=== PATIENT | male | born 1950 | race Caucasian/White ===

== ENCOUNTER 2025-09-05 08:32 | Inpatient (IN) | payer MEDICARE ==
[~2025-09-05] VITALS: Ht 182.9 cm; Wt 98.0 kg
[2025-09-05 08:34] VITALS: O2SAT 100
[2025-09-05] MEDS ORDERED: MORPHINE SULFATE 4 MG/ML INJ (FOR IV/IM USE) IV ONE (09:15)
[2025-09-05 10:08] LABS: HEMATOCRIT. 27.7 % (42.0-52.0); HEMOGLOBIN. 8.5 g/dL (14.0-18.0); MEAN PLATELET VOLUME 9.2 fl (7.4-10.4); PLATELET 240 x1000/uL (130-400); RED BLOOD CELL COUNT 3.56 mill/uL (4.7-6.1); RED CELL DISTRIBUTION WIDTH 17.8 % (11.6-14.6)
[2025-09-05 10:23] LABS: CREATININE 1.1 mg/dL (0.6-1.3); UREA NITROGEN BLOOD 20 mg/dL (9-23)
[2025-09-05 10:25] LABS: ASPARTATE AMINOTRANSFERASE 27 IU/L (<34); BILIRUBIN TOTAL 0.7 mg/dL (0.1-1.0); PROTEIN TOTAL 7.8 g/dL (6.0-8.3)
[2025-09-05 10:59] LABS: BAND% 1.0 % (1.0-6.0); EOSINOPHILS % MANUAL 1.0 % (0.0-5.0); LYMPHOCYTES % MANUAL 5.0 % (20.0-50.0); MONOCYTES % MANUAL 2.0 % (2.0-8.0); NEUTROPHILS % MANUAL 91.0 % (45.0-75.0)
[2025-09-05 11:00] LABS: PLATELET ESTIMATE NORMAL
[2025-09-05] MEDS: MORPHINE SULFATE 4 MG/ML INJ (FOR IV/IM USE) IV NR (15:14)
[2025-09-05] MEDS: CLONIDINE 0.1MG TABLET PO PRN (17:37)
[2025-09-05] MEDS ORDERED: CLONIDINE 0.1MG TABLET PO PRN (19:00)
[2025-09-05] MEDS ORDERED: IPRATROPIUM/ALBUTEROL 0.5-3(2.5)MG/3ML NEB HHN PRN (19:00)
[2025-09-05] MEDS ORDERED: ACETAMINOPHEN 325MG TABLET PO PRN (19:00)
[2025-09-05] MEDS ORDERED: ONDANSETRON HCL 4MG/2ML INJ IV PRN (19:00)
[2025-09-05] MEDS: HYDROCODONE/ACETAMINOPHEN 5/325MG TABLET PO PRN (19:22)
[2025-09-05 20:00] VITALS: BP 155/66; PULSE 80; RESP 16; TEMP 36.7; O2SAT 97
[2025-09-06] VITALS (9 sets, daily range): BP systolic 148–187; BP diastolic 58–80; PULSE 63–93; RESP 15–20; TEMP 36.6–37.3; O2SAT 95–98
[2025-09-06 11:18] LABS: BASOPHILS % 0.6 % (0.0-2.0); EOSINOPHILS % 1.4 % (0.0-5.0); HEMATOCRIT. 25.3 % (42.0-52.0); HEMOGLOBIN. 8.1 g/dL (14.0-18.0); LYMPHOCYTES % 10.0 % (20.0-50.0); MEAN PLATELET VOLUME 9.1 fl (7.4-10.4); MONOCYTES % 8.6 % (2.0-8.0); NEUTROPHILS % 79.4 % (40.0-76.0); PLATELET 240 x1000/uL (130-400); RED BLOOD CELL COUNT 3.37 mill/uL (4.7-6.1); RED CELL DISTRIBUTION WIDTH 17.1 % (11.6-14.6)
[2025-09-06 11:40] LABS: CREATININE 1.0 mg/dL (0.6-1.3)
[2025-09-06 11:41] LABS: UREA NITROGEN BLOOD 21 mg/dL (9-23)
[2025-09-06 11:42] LABS: ASPARTATE AMINOTRANSFERASE 23 IU/L (<34)
[2025-09-06 11:43] LABS: BILIRUBIN TOTAL 0.5 mg/dL (0.1-1.0); PROTEIN TOTAL 7.0 g/dL (6.0-8.3)
[2025-09-06] MEDS: AMLODIPINE 5MG TABLET PO SCH (14:39)
[2025-09-06] MEDS: ENOXAPARIN 40MG/0.4ML SYR SUBCUT SCH (14:39)
[2025-09-06] MEDS: SODIUM CHLORIDE 0.9% 1,000 ML IV SCH (15:47)
[2025-09-06 16:57] LABS: INR 1.0
[2025-09-07] VITALS (8 sets, daily range): BP systolic 123–177; BP diastolic 72–88; PULSE 80–87; RESP 16–19; TEMP 36.2–36.7; O2SAT 95–100
[2025-09-07] MEDS ORDERED: DEXAMETHASONE 4MG/ML 1ML VIAL ONE (11:27)
[2025-09-07] MEDS ORDERED: FENTANYL CITRATE/PF 50MCG/ML 2ML VIAL ONE ×2 (11:28→13:01)
[2025-09-07] MEDS ORDERED: PROPOFOL 200MG/20ML VIAL IV ONE (11:28)
[2025-09-07] MEDS ORDERED: FAMOTIDINE 20MG/2ML VIAL IV ONE (11:33)
[2025-09-07] MEDS ORDERED: ACETAMINOPHEN 1000MG/100ML 100 ML IV ONE (11:34)
[2025-09-07] MEDS ORDERED: LIDOCAINE HCL/EPINEPHRINE 1%-EPI 1:100,000 20ML VIAL ONE (11:43)
[2025-09-07] MEDS ORDERED: ONDANSETRON HCL 4MG/2ML INJ IV PRN ×2 (12:00→12:30)
[2025-09-07] MEDS ORDERED: HYDROCODONE/ACETAMINOPHEN 5/325MG TABLET PO PRN ×2 (12:00)
[2025-09-07] MEDS ORDERED: HYDROMORPHONE HCL/PF 2MG/ML INJ IV PRN (12:00)
[2025-09-07] MEDS ORDERED: CEFAZOLIN 1000MG PREMIX 50 ML IV SCH ×2 (12:00→14:00)
[2025-09-07] MEDS ORDERED: VANCOMYCIN HCL 1GM VIAL ONE (12:06)
[2025-09-07] MEDS ORDERED: GLYCOPYRROLATE 0.2 MG/ML 2ML VIAL ONE (12:10)
[2025-09-07] MEDS ORDERED: CEFAZOLIN SODIUM 1000MG/VIAL ONE (12:10)
[2025-09-07] MEDS ORDERED: LABETALOL 5MG/ML 4ML INJ IV PRN (12:30)
[2025-09-07] MEDS ORDERED: HYDRALAZINE 20MG/ML VIAL IV PRN (12:30)
[2025-09-07] MEDS ORDERED: ALBUTEROL (0.5%) 2.5MG/0.5ML NEB HHN ONE (12:30)
[2025-09-07] MEDS ORDERED: GABA-534 PO (12:45)
[2025-09-07] MEDS ORDERED: ESCI-7 PO (12:45)
[2025-09-07] MEDS ORDERED: OLAN7.5T50 MT (12:45)
[2025-09-07] MEDS ORDERED: CARI-517 PO (12:45)
[2025-09-07] MEDS ORDERED: HYDR-4350 PO (12:45)
[2025-09-07] MEDS ORDERED: FAMO40TA7 PO (12:45)
[2025-09-07] MEDS ORDERED: QUET25TA36 PO (12:45)
[2025-09-07] MEDS ORDERED: PREG75CA PO (12:45)
[2025-09-07] MEDS ORDERED: CALC30CA MT (12:45)
[2025-09-07] MEDS ORDERED: DOXE25CA3 PO (12:45)
[2025-09-07] MEDS ORDERED: ARIP10TA86 PO (12:45)
[2025-09-07] MEDS ORDERED: FENTANYL CITRATE/PF 50MCG/ML 2ML VIAL IV PRN (13:00)
[2025-09-07] MEDS: HYDROMORPHONE HCL/PF 1MG/ML INJ IV PRN (14:01)
[2025-09-07] MEDS: CEFAZOLIN 1000MG PREMIX 50 ML IV SCH (22:31)
[2025-09-08] VITALS (12 sets, daily range): BP systolic 140–186; BP diastolic 59–81; PULSE 66–90; RESP 16–24; TEMP 36.2–37.503; O2SAT 96–100
[2025-09-08 07:38] LABS: BASOPHILS % 0.7 % (0.0-2.0); EOSINOPHILS % 1.6 % (0.0-5.0); HEMATOCRIT. 22.0 % (42.0-52.0); LYMPHOCYTES % 11.2 % (20.0-50.0); MEAN PLATELET VOLUME 9.3 fl (7.4-10.4); MONOCYTES % 9.5 % (2.0-8.0); NEUTROPHILS % 77.0 % (40.0-76.0); PLATELET 228 x1000/uL (130-400); RED BLOOD CELL COUNT 2.84 mill/uL (4.7-6.1); RED CELL DISTRIBUTION WIDTH 17.3 % (11.6-14.6)
[2025-09-08 07:46] LABS: CREATININE 1.3 mg/dL (0.6-1.3)
[2025-09-08 07:47] LABS: UREA NITROGEN BLOOD 33 mg/dL (9-23)
[2025-09-08] MEDS ORDERED: TRAMADOL 50MG TABLET PO PRN (08:30)
[2025-09-08] MEDS ORDERED: MORPHINE SULFATE 4 MG/ML INJ (FOR IV/IM USE) IV PRN (08:30)
[2025-09-08] MEDS ORDERED: HYDROCODONE/ACETAMINOPHEN 5/325MG TABLET PO PRN (08:30)
[2025-09-08 08:37] LABS: HEMOGLOBIN. 7.0 g/dL (14.0-18.0)
[2025-09-08] MEDS: ENOXAPARIN 40MG/0.4ML SYR SUBCUT SCH (09:00)
[2025-09-08] MEDS: HYDROCODONE/ACETAMINOPHEN 10/325MG TABLET PO PRN (09:17)
[2025-09-08] MEDS ORDERED: NALOXONE HCL 0.4MG/ML VIAL IV PRN (17:30)
[2025-09-08] MEDS: AMLODIPINE 5MG TABLET PO SCH (17:37)
[2025-09-09] VITALS: BP 165/71; PULSE 97; RESP 19; TEMP 36.7; O2SAT 97
[2025-09-09 04:00] VITALS: BP 144/61; PULSE 62; RESP 18; TEMP 36.5; O2SAT 96
[2025-09-09 07:22] LABS: BASOPHILS % 1.0 % (0.0-2.0); EOSINOPHILS % 10.7 % (0.0-5.0); HEMATOCRIT. 23.9 % (42.0-52.0); HEMOGLOBIN. 7.4 g/dL (14.0-18.0); LYMPHOCYTES % 12.2 % (20.0-50.0); MEAN PLATELET VOLUME 9.5 fl (7.4-10.4); MONOCYTES % 11.5 % (2.0-8.0); NEUTROPHILS % 64.6 % (40.0-76.0); PLATELET 202 x1000/uL (130-400); RED BLOOD CELL COUNT 2.96 mill/uL (4.7-6.1); RED CELL DISTRIBUTION WIDTH 17.5 % (11.6-14.6)
[2025-09-09 08:00] VITALS: BP 146/70; PULSE 78; RESP 21; TEMP 36.4; O2SAT 95
[2025-09-09] MEDS: IRON SUCROSE COMPLEX 100 MG/5 ML ML IV SCH (08:44)
[2025-09-09] MEDS: FERROUS SULFATE 325MG TABLET PO SCH (11:58)
[2025-09-09 12:00] VITALS: BP 147/59; PULSE 48; RESP 20; TEMP 36.3; O2SAT 100
[2025-09-09 16:00] VITALS: BP 148/63; PULSE 81; RESP 20; TEMP 36.3; O2SAT 94
[2025-09-09] MEDS: DOCUSATE SODIUM 100MG CAPSULE PO PRN (17:58)
[2025-09-09 20:00] VITALS: BP 143/62; PULSE 96; RESP 19; TEMP 36.6; O2SAT 98
[2025-09-10] VITALS (12 sets, daily range): BP systolic 147–161; BP diastolic 55–68; PULSE 66–92; RESP 18–20; TEMP 36.16956–37.8; O2SAT 94–100
[2025-09-10 06:32] LABS: HEMATOCRIT. 22.0 % (42.0-52.0); HEMOGLOBIN. 7.1 g/dL (14.0-18.0); MEAN PLATELET VOLUME 9.6 fl (7.4-10.4); PLATELET 264 x1000/uL (130-400); RED BLOOD CELL COUNT 2.79 mill/uL (4.7-6.1); RED CELL DISTRIBUTION WIDTH 18.1 % (11.6-14.6)
[2025-09-10 06:59] LABS: CREATININE 0.8 mg/dL (0.6-1.3)
[2025-09-10 07:00] LABS: UREA NITROGEN BLOOD 17 mg/dL (9-23)
[2025-09-10 07:02] LABS: PHOSPHORUS 3.0 mg/dL (2.5-4.9)
[2025-09-10 07:10] LABS: FOLIC ACID (FOLATE) SERUM 14.16 ng/mL (>5.38)
[2025-09-10 07:40] LABS: VITAMIN B12 SERUM 272 pg/mL (211-911)
[2025-09-10] MEDS: CYANOCOBALAMIN 1000MCG/ML VIAL IM SCH (09:29)
[2025-09-10] MEDS: HYDRALAZINE HCL 25MG TABLET PO SCH (09:29)
[2025-09-10 16:31] LABS: EOSINOPHILS % MANUAL 6.0 % (0.0-5.0); LYMPHOCYTES % MANUAL 23.0 % (20.0-50.0); MONOCYTES % MANUAL 9.0 % (2.0-8.0); NEUTROPHILS % MANUAL 62.0 % (45.0-75.0); PLATELET ESTIMATE NORMAL
[2025-09-11] VITALS: BP 129/62; PULSE 66; RESP 18; TEMP 37.4; O2SAT 100
[2025-09-11 04:00] VITALS: RESP 17
[2025-09-11 07:04] LABS: CREATININE 0.8 mg/dL (0.6-1.3); HEMATOCRIT. 26.8 % (42.0-52.0); HEMOGLOBIN. 8.5 g/dL (14.0-18.0); MEAN PLATELET VOLUME 9.4 fl (7.4-10.4); PLATELET 299 x1000/uL (130-400); RED BLOOD CELL COUNT 3.24 mill/uL (4.7-6.1); RED CELL DISTRIBUTION WIDTH 18.1 % (11.6-14.6); UREA NITROGEN BLOOD 16 mg/dL (9-23)
[2025-09-11 07:06] LABS: PHOSPHORUS 3.2 mg/dL (2.5-4.9)
[2025-09-11 08:00] VITALS: BP 155/65; PULSE 91; RESP 19; TEMP 36.3; O2SAT 99
[2025-09-11 12:00] VITALS: BP 144/69; PULSE 68; RESP 18; TEMP 36.7; O2SAT 97
[2025-09-11 14:01] LABS: BAND% 4.0 % (1.0-6.0); EOSINOPHILS % MANUAL 5.0 % (0.0-5.0); LYMPHOCYTES % MANUAL 7.0 % (20.0-50.0); MONOCYTES % MANUAL 11.0 % (2.0-8.0); NEUTROPHILS % MANUAL 73.0 % (45.0-75.0); PLATELET ESTIMATE NORMAL
[2025-09-11 16:00] VITALS: BP 154/68; PULSE 88; RESP 17; TEMP 36.5; O2SAT 98
[2025-09-11 20:00] VITALS: BP 137/68; PULSE 67; RESP 14; TEMP 36.8; O2SAT 100
[2025-09-12] VITALS: BP_SYST 144; BP_DIAS 65; BP_DIAS 69; PULSE 69; RESP 18; TEMP 35.9; O2SAT 98
[2025-09-12 04:00] VITALS: BP 151/72; PULSE 83; RESP 18; TEMP 36.1; O2SAT 97
[2025-09-12 08:00] VITALS: BP 138/80; PULSE 77; RESP 20; TEMP 36.7; O2SAT 99
[2025-09-12] MEDS ORDERED: PREGABALIN 75MG CAPSULE PO SCH (09:45)
[2025-09-12] MEDS ORDERED: FAMO40TA7 PO (09:48)
[2025-09-12 12:00] VITALS: BP 153/70; PULSE 80; RESP 20; TEMP 36.8; O2SAT 99
[2025-09-12] MEDS: GABAPENTIN 400MG CAPSULE PO SCH (12:14)
[2025-09-12] MEDS: FAMOTIDINE 20MG TABLET PO SCH (12:14)
[2025-09-12] MEDS: DOXEPIN HCL 25MG CAPSULE PO SCH (12:15)
[2025-09-12] MEDS: MAGNESIUM OXIDE 400MG TABLET PO SCH (12:15)
[2025-09-12] MEDS: ARIPIPRAZOLE 5MG TABLET PO SCH (12:15)
[2025-09-12] MEDS: CITALOPRAM HYDROBROMIDE 10MG TABLET PO SCH (12:15)
[2025-09-12] MEDS: DILTIAZEM HCL 30MG TABLET PO SCH (13:11)
[2025-09-12] MEDS: MAGNESIUM 2 G PREMIX 50 ML IV NR (13:17)
[2025-09-12] MEDS ORDERED: GABA-534 PO (15:06)
[2025-09-12] MEDS ORDERED: OLAN7.5T50 PO (15:06)
[2025-09-12] MEDS ORDERED: ARIP10TA86 PO (15:07)
[2025-09-12] MEDS ORDERED: CARI-517 PO (15:08)
[2025-09-12] MEDS ORDERED: DOXE25CA3 PO (15:10)
[2025-09-12 16:00] VITALS: BP 158/75; PULSE 89; RESP 20; TEMP 36.9; O2SAT 99
[2025-09-12 20:00] VITALS: BP 152/71; PULSE 67; RESP 18; TEMP 36.6; O2SAT 100
[2025-09-13] VITALS: BP 128/58; PULSE 66; RESP 18; TEMP 36.9; O2SAT 95
[2025-09-13 04:00] VITALS: BP 117/72; PULSE 86; RESP 17; TEMP 36.4; O2SAT 98
[2025-09-13 08:00] VITALS: BP 147/73; PULSE 84; RESP 22; TEMP 36.7; O2SAT 99
[2025-09-13 08:02] LABS: HEMATOCRIT. 29.2 % (42.0-52.0); HEMOGLOBIN. 9.4 g/dL (14.0-18.0); MEAN PLATELET VOLUME 9.1 fl (7.4-10.4); PLATELET 401 x1000/uL (130-400); RED BLOOD CELL COUNT 3.52 mill/uL (4.7-6.1); RED CELL DISTRIBUTION WIDTH 19.1 % (11.6-14.6)
[2025-09-13 08:22] LABS: HEMATOCRIT. 29.0 % (42.0-52.0); HEMOGLOBIN. 9.4 g/dL (14.0-18.0); MEAN PLATELET VOLUME 9.0 fl (7.4-10.4); PLATELET 397 x1000/uL (130-400); RED BLOOD CELL COUNT 3.51 mill/uL (4.7-6.1); RED CELL DISTRIBUTION WIDTH 18.7 % (11.6-14.6)
[2025-09-13 08:28] LABS: CREATININE 0.9 mg/dL (0.6-1.3); UREA NITROGEN BLOOD 16 mg/dL (9-23)
[2025-09-13 12:00] VITALS: BP 140/60; PULSE 78; RESP 21; TEMP 35.8; O2SAT 98
[2025-09-13] MEDS: MORPHINE SULFATE 2 MG/ML INJ (NOT FOR IM USE) IV PRN (14:05)
[2025-09-13 16:00] VITALS: BP 139/61; PULSE 85; RESP 21; TEMP 36.3; O2SAT 98
[2025-09-13 18:45] LABS: BAND% 1.0 % (1.0-6.0); EOSINOPHILS % MANUAL 4.0 % (0.0-5.0); LYMPHOCYTES % MANUAL 13.0 % (20.0-50.0); MONOCYTES % MANUAL 10.0 % (2.0-8.0); NEUTROPHILS % MANUAL 72.0 % (45.0-75.0); PLATELET ESTIMATE NORMAL
[2025-09-13 18:47] LABS: BAND% 1.0 % (1.0-6.0); EOSINOPHILS % MANUAL 6.0 % (0.0-5.0); LYMPHOCYTES % MANUAL 11.0 % (20.0-50.0); MONOCYTES % MANUAL 14.0 % (2.0-8.0); NEUTROPHILS % MANUAL 68.0 % (45.0-75.0); PLATELET ESTIMATE INCREASED
[2025-09-13 20:00] VITALS: BP 132/54; PULSE 94; RESP 20; TEMP 36.2; O2SAT 98
[2025-09-13] MEDS: DOXEPIN HCL 25MG CAPSULE PO SCH (21:03)
[2025-09-14] VITALS: BP 123/53; PULSE 61; RESP 18; TEMP 36.3; O2SAT 99
[2025-09-14 04:00] VITALS: BP 123/58; PULSE 70; RESP 18; TEMP 37.2; O2SAT 98
[2025-09-14 08:00] VITALS: BP 143/64; PULSE 89; RESP 18; TEMP 36.8; O2SAT 100
[2025-09-14 08:11] LABS: BASOPHILS % 0.8 % (0.0-2.0); EOSINOPHILS % 3.9 % (0.0-5.0); HEMATOCRIT. 26.9 % (42.0-52.0); HEMOGLOBIN. 8.8 g/dL (14.0-18.0); LYMPHOCYTES % 11.2 % (20.0-50.0); MEAN PLATELET VOLUME 9.2 fl (7.4-10.4); MONOCYTES % 8.0 % (2.0-8.0); NEUTROPHILS % 76.1 % (40.0-76.0); PLATELET 401 x1000/uL (130-400); RED BLOOD CELL COUNT 3.23 mill/uL (4.7-6.1); RED CELL DISTRIBUTION WIDTH 19.6 % (11.6-14.6)
[2025-09-14 12:00] VITALS: BP 128/56; PULSE 75; RESP 18; TEMP 36.6; O2SAT 99
[2025-09-14 16:00] VITALS: BP 136/53; PULSE 74; RESP 18; TEMP 36.7; O2SAT 99
[2025-09-14 20:00] VITALS: BP 146/67; PULSE 65; RESP 19; TEMP 37.1; O2SAT 99
[2025-09-14] MEDS: ENOXAPARIN 40MG/0.4ML SYR SUBCUT SCH (21:22)
[2025-09-15] VITALS: BP 136/58; PULSE 62; RESP 19; TEMP 36.2; O2SAT 96
[2025-09-15 04:00] VITALS: BP 138/56; PULSE 52; RESP 18; TEMP 36; O2SAT 94
[2025-09-15 07:48] LABS: BASOPHILS % 0.5 % (0.0-2.0); EOSINOPHILS % 2.8 % (0.0-5.0); HEMATOCRIT. 30.5 % (42.0-52.0); HEMOGLOBIN. 9.7 g/dL (14.0-18.0); LYMPHOCYTES % 9.9 % (20.0-50.0); MEAN PLATELET VOLUME 9.0 fl (7.4-10.4); MONOCYTES % 8.3 % (2.0-8.0); NEUTROPHILS % 78.5 % (40.0-76.0); PLATELET 510 x1000/uL (130-400); RED BLOOD CELL COUNT 3.67 mill/uL (4.7-6.1); RED CELL DISTRIBUTION WIDTH 21.1 % (11.6-14.6)
[2025-09-15 12:00] VITALS: BP 139/42; PULSE 76; RESP 19; TEMP 36.5; O2SAT 97
[2025-09-15] MEDS: ENOXAPARIN 100MG/ML SYR SUBCUT SCH (15:52)
[2025-09-15 16:00] VITALS: BP_SYST 138; BP_DIAS 68; BP_DIAS 79; PULSE 91; RESP 19; TEMP 36.6; O2SAT 100
[2025-09-15 20:00] VITALS: BP 149/75; PULSE 99; RESP 18; TEMP 36.6; O2SAT 96
[2025-09-16] VITALS: BP 115/52; PULSE 65; RESP 18; RESP 19; TEMP 36.5; TEMP 36.6; O2SAT 96
[2025-09-16 04:00] VITALS: BP 124/58; PULSE 80; RESP 18; TEMP 36.7; O2SAT 96
[2025-09-16 08:00] VITALS: BP 141/52; PULSE 82; RESP 16; TEMP 36.6; O2SAT 99
[2025-09-16 12:00] VITALS: BP 128/56; PULSE 72; RESP 16; TEMP 36.7; O2SAT 96
[2025-09-16 16:00] VITALS: BP 128/61; PULSE 82; RESP 17; TEMP 36.8; O2SAT 97
[2025-09-16 20:00] VITALS: BP 139/71; PULSE 73; RESP 18; TEMP 36.6; O2SAT 97
[2025-09-17] VITALS: BP 137/60; PULSE 83; RESP 20; TEMP 36.6; O2SAT 100
[2025-09-17 04:00] VITALS: BP 111/70; PULSE 76; RESP 20; TEMP 36.4; O2SAT 97
[2025-09-17 08:00] VITALS: BP 144/63; PULSE 79; RESP 19; TEMP 36.3; O2SAT 96
[2025-09-17 12:00] VITALS: BP 133/70; PULSE 69; RESP 18; TEMP 36.4; O2SAT 97
[2025-09-17 16:00] VITALS: BP 124/40; PULSE 75; RESP 18; TEMP 36.8; O2SAT 97
[2025-09-17 20:00] VITALS: BP 135/46; PULSE 82; RESP 17; TEMP 36.3; O2SAT 98
[2025-09-17] MEDS: ACETAMINOPHEN 325MG TABLET PO PRN (22:11)
[2025-09-18] VITALS (7 sets, daily range): BP systolic 120–147; BP diastolic 52–69; PULSE 67–77; RESP 18–23; TEMP 36.2–37.3; O2SAT 96–98
[2025-09-18 06:59] LABS: BASOPHILS % 1.1 % (0.0-2.0); EOSINOPHILS % 4.6 % (0.0-5.0); HEMATOCRIT. 29.3 % (42.0-52.0); HEMOGLOBIN. 9.4 g/dL (14.0-18.0); LYMPHOCYTES % 20.4 % (20.0-50.0); MEAN PLATELET VOLUME 9.4 fl (7.4-10.4); MONOCYTES % 8.8 % (2.0-8.0); NEUTROPHILS % 65.1 % (40.0-76.0); PLATELET 529 x1000/uL (130-400); RED BLOOD CELL COUNT 3.51 mill/uL (4.7-6.1); RED CELL DISTRIBUTION WIDTH 21.1 % (11.6-14.6)
[2025-09-18 07:10] LABS: CREATININE 1.0 mg/dL (0.6-1.3); UREA NITROGEN BLOOD 25 mg/dL (9-23)
[2025-09-19] VITALS: BP 131/59; PULSE 73; RESP 16; TEMP 36.5; O2SAT 97
[2025-09-19 04:00] VITALS: BP 128/52; PULSE 82; RESP 16; TEMP 36.3; O2SAT 99
[2025-09-19 08:00] VITALS: BP 120/71; PULSE 92; RESP 16; TEMP 36.4; O2SAT 97
[2025-09-19 16:00] VITALS: BP 128/64; PULSE 89; RESP 18; TEMP 36.3; O2SAT 98
[2025-09-19 20:00] VITALS: BP 139/72; PULSE 76; RESP 18; TEMP 36.4; O2SAT 96
[2025-09-20] VITALS (7 sets, daily range): BP systolic 128–152; BP diastolic 61–79; PULSE 76–91; RESP 17–18; TEMP 36.4–38; O2SAT 96–97
[2025-09-21] VITALS: BP 135/65; PULSE 79; RESP 18; TEMP 36.7; O2SAT 96
[2025-09-21 04:00] VITALS: BP 137/65; PULSE 78; RESP 18; TEMP 36.7; O2SAT 97
[2025-09-21 08:00] VITALS: BP 145/65; PULSE 79; RESP 18; TEMP 36.9; O2SAT 98
[2025-09-21 12:00] VITALS: BP 118/77; PULSE 75; RESP 17; TEMP 36.9; O2SAT 98
[2025-09-21 16:00] VITALS: BP 121/64; PULSE 72; RESP 15; TEMP 36.9; O2SAT 97
[2025-09-21 20:00] VITALS: BP 114/59; PULSE 86; RESP 19; TEMP 36.2; O2SAT 97
[2025-09-22] VITALS: BP 115/59
[2025-09-22 04:00] VITALS: BP 127/68; PULSE 88; RESP 18; TEMP 36.3; O2SAT 99
[2025-09-22 12:00] VITALS: BP 131/78; PULSE 90; RESP 20; TEMP 36.2; O2SAT 96
[2025-09-22 16:00] VITALS: BP 111/52; PULSE 83; RESP 24; TEMP 36.7; O2SAT 98
[2025-09-22 16:47] VITALS: BP 111/52; PULSE 83; RESP 24; TEMP 98
[2025-09-22] MEDS ORDERED: FERR-63 PO (18:58)
[2025-09-22] MEDS ORDERED: HYDR25TA78 PO (18:58)
[2025-09-22] MEDS ORDERED: APIX5TAB MT (18:58)
[2025-09-22] MEDS ORDERED: ABIL5 PO (18:58)
[2025-09-22] MEDS ORDERED: DILT30TA3 PO (18:58)
[2025-09-22] MEDS ORDERED: CITA10TA16 PO (18:58)
[2025-09-22 20:00] VITALS: BP 107/64; PULSE 66; RESP 16; TEMP 36.7; O2SAT 97
[2025-09-23] VITALS: BP 115/58; PULSE 71; RESP 18; TEMP 36.7; O2SAT 97
[2025-09-23 04:00] VITALS: BP 115/73; PULSE 75; RESP 17; TEMP 36.8; O2SAT 97
[2025-09-23 07:02] LABS: BASOPHILS % 1.2 % (0.0-2.0); EOSINOPHILS % 5.9 % (0.0-5.0); HEMATOCRIT. 27.8 % (42.0-52.0); HEMOGLOBIN. 9.2 g/dL (14.0-18.0); LYMPHOCYTES % 17.7 % (20.0-50.0); MEAN PLATELET VOLUME 9.3 fl (7.4-10.4); MONOCYTES % 7.9 % (2.0-8.0); NEUTROPHILS % 67.3 % (40.0-76.0); PLATELET 407 x1000/uL (130-400); RED BLOOD CELL COUNT 3.22 mill/uL (4.7-6.1); RED CELL DISTRIBUTION WIDTH 22.8 % (11.6-14.6)
[2025-09-23 07:08] LABS: ADD RBC MORPHOLOGY NO
[2025-09-23 07:34] LABS: CREATININE 1.0 mg/dL (0.6-1.3)
[2025-09-23 07:36] LABS: UREA NITROGEN BLOOD 22 mg/dL (9-23)
[2025-09-23 08:00] VITALS: BP 130/59; PULSE 82; RESP 20; TEMP 36.6; O2SAT 97
[2025-09-23 12:00] VITALS: BP 128/68; PULSE 76; RESP 18; TEMP 36.8; O2SAT 98
[2025-09-23 15:02] VITALS: PULSE 85
== END 2025-09-23 15:36 | DRG 481 ==
LOC: ER 09:24 → 8EST 10:53 → EDBEDREQ 10:56 → CANBEDREQ 11:32 → ENRESERV 16:54 → 8EST 17:56
PROVIDERS: ADMIT Internal Medicine; ATTEND Internal Medicine
PROC: 30233N1 Transfusion of Nonautologous Red Blood Cells into Peripheral Vein, Percutaneous Approach (ICD-10-PCS; 2025-09-06)
PROC: 0QH604Z Insertion of Internal Fixation Device into Right Upper Femur, Open Approach (ICD-10-PCS; principal; 2025-09-07)
DX: S72.141A Displaced intertrochanteric fracture of right femur, initial encounter for closed fracture (principal); I16.1 Hypertensive emergency; M62.82 Rhabdomyolysis; D50.9 Iron deficiency anemia, unspecified; E11.9 Type 2 diabetes mellitus without complications; I48.92 Unspecified atrial flutter; D72.821 Monocytosis (symptomatic); M85.80 Other specified disorders of bone density and structure, unspecified site; F89 Unspecified disorder of psychological development; Z20.822 Contact with and (suspected) exposure to COVID-19; E83.42 Hypomagnesemia; M16.11 Unilateral primary osteoarthritis, right hip; I10 Essential (primary) hypertension; I48.91 Unspecified atrial fibrillation; Z79.84 Long term (current) use of oral hypoglycemic drugs; Z87.891 Personal history of nicotine dependence; W01.0XXA Fall on same level from slipping, tripping and stumbling without subsequent striking against object, initial encounter; Y93.89 Activity, other specified; Y92.89 Other specified places as the place of occurrence of the external cause; Y99.8 Other external cause status
CPT/HCPCS: 36415; 73522; 73552; 73560; 76000; 80048; 80053; 82270; 82550; 82607; 82728; 82746; 83036; 83540; 83550; 83735; 84100; 84145; 85014; 85018; 85025; 86850; 86900; 86920; 87426; 93005; 93306; 93970; 97110; 97112; 97162; 97166; 97530; 97535; 97542; 99285; A4615; J0690; J1100; J1171; J1308; J1650; J2004; J2270; J2704; J3010; J3373; J3420; J3475; J3490; J7030; J7120; P9016; C1713; J0131